=== PATIENT | female | born 1995 | race Caucasian/White ===

== ENCOUNTER 2025-04-13 12:09 | Emergency (ER) | payer SELFPAY ==
[~2025-04-13] VITALS: Ht 162.6 cm; Wt 58.0 kg
[2025-04-13 12:22] VITALS: O2SAT 97
[2025-04-13] MEDS: IBUPROFEN 600MG TABLET PO NR (14:05)
[2025-04-13] MEDS ORDERED: DEXT5SYR PO (15:18)
[2025-04-13 15:23] VITALS: BP 130/67; PULSE 74; RESP 16; TEMP 37.7; O2SAT 97
== END 2025-04-13 15:25 | disposition home or self-care (01) ==
LOC: ER 13:02
DX: J06.9 Acute upper respiratory infection, unspecified (principal); E03.9 Hypothyroidism, unspecified
CPT/HCPCS: 87070; 87430; 99283

== ENCOUNTER 2025-04-21 03:32 | Emergency (ER) | payer MEDICAID ==
[~2025-04-21] VITALS: Ht 154.9 cm; Wt 55.0 kg
[~2025-04-21 03:32] MED LIST: DEXT5SYR PO
[2025-04-21 03:48] VITALS: O2SAT 98
[2025-04-21] MEDS: IBUPROFEN 600MG TABLET PO ONE (04:43)
[2025-04-21] MEDS ORDERED: AMOX-494 MT (04:59)
[2025-04-21 05:06] VITALS: BP 99/59; PULSE 61; RESP 15; TEMP 36.8; O2SAT 98
== END 2025-04-21 05:07 | disposition home or self-care (01) ==
LOC: ER 03:32
DX: J32.9 Chronic sinusitis, unspecified (principal); R05.8 Other specified cough; E03.9 Hypothyroidism, unspecified
CPT/HCPCS: 71045; 99283